=== PATIENT | female | born 2000 | race Caucasian/White ===

== ENCOUNTER 2024-01-28 10:30 | Emergency (ER) | payer OTHER, SELFPAY ==
[2024-01-28 10:36] VITALS: BP 131/65
[2024-01-28 11:21] VITALS: BMI 26.5
--- NOTE | 2024-01-28 11:32 | ED.GENMED ---
History of Present Illness
General
Chief Complaint: Musculo-Skeletal Complaint
Source: patient
Exam Limitations: none
Time Seen by Provider: 01/28/24 11:13
Nursing documentation reviewed up to this point in time: agreed with
History of Present Illness
History of Present Illness:
Patient is a 23-year-old female who presents to the ER complaining of low back pain. Patient was at [facility] and caught another girl who was going to fall. The girl landed on her chest and she arched her back.
Since then she has had pain across her lower back. She denies any radiation in her legs denies any weakness in her legs. She has been taking ibuprofen. She did take ibuprofen this morning.
Review of Systems
Review of Systems
Allergies reviewed?: Yes
All Other Systems: ROS reviewed and negative except as documented in HPI and ROS
Respiratory: Reports no symptoms
Cardiac: Reports no symptoms
ABD/GI: Reports no symptoms
Musculoskeletal: Reports back pain (Low back pain)
Skin: Reports no symptoms
Neurological: Reports no symptoms
Psychiatric: Reports no symptoms
Phy Exam
General Physical Exam
General Presentation: no apparent distress
General Skin: warm and dry
General Habitus: normal
General Mental: alert
General Hydration: appears well hydrated
Neurological Exam
Neurological Exam: alert and oriented x3
Musculoskeletal Exam
Musculoskeletal Exam: other (Normal inspection to low back; tenderness throughout bilateral paraspinal muscles)
Skin Exam
Skin Exam: normal color and warm/dry
Psychiatric Exam
Psychiatric Exam: normal mood/affect
Course
Orders/Labs/Results
Orders:
Orders
01/28/24 11:30
Lumbar Spine Complete, 4 View [CR Lumbar Spine Comp Min 4 Vw*] Urgent
Comment:
Reason For Exam: trauma
01/28/24 11:32
Test Result ONCE
01/28/24 11:34
HCG, Urine Qualitative Screen Urgent
Date Specimen was Collected: 01/28/24
Time Specimen was Collected: 11:32
Urinalysis Reflex To Culture Urgent
Date Specimen was Collected: 01/28/24
Time Specimen was Collected: 11:32
Urine Microscopic Reflex Cult Urgent
Urine Culture Urgent
ZELDA Source: U
Specimen Description:
Date Specimen was Collected: 01/28/24
Time Specimen was Collected: 11:32
01/28/24 13:10
Cefdinir [Omnicef] 300 mg PO NOW STA
Abnormal Lab Results
01/28/24
11:34
Leukocyte Esterase Rfl 1+ A
(Negative)
Urine RBC 3-6 A /HPF
(0-2)
Urine WBC (Reflex) 30-40 A /HPF
(0-5)
Urine Bacteria (Reflex) Few A
(Negative)
Vital Signs
Initial and Last Documented VS:
Initial Vital Signs
Temp Pulse Resp BP Pulse Ox
98.4 F 75 16 131/65 98
01/28/24 10:36 01/28/24 10:36 01/28/24 10:36 01/28/24 10:36 01/28/24 10:36
Last Documented Vital Signs
Temp Pulse Resp BP Pulse Ox
98.4 F 75 16 131/65 98
01/28/24 10:36 01/28/24 10:36 01/28/24 10:36 01/28/24 10:36 01/28/24 10:36
MDM/Problems Addressed
MDM/Problems Addressed:
Patient initially presented for back injury. Symptoms are consistent with lumbar strain no obvious fractures on x-ray no neurological deficits. In addition patient was found to have UTI. Patient did not initially complain about dysuria however
when I asked after UA results with patient does report she has had burning with urination since Monday. No fevers I think the back pain is related to her muscle injury and not pyelonephritis. She denies any nausea vomit no other concerning
symptoms we will treat back strain with ibuprofen I did offer muscle relaxer she declines will d/c on cefdinir for UTI.
*Radiology
Radiology exam reviewed: radiology read reviewed
*Pulse Oximetry
Patient hypoxic: no
*Critical Care Note
Total Time (30-74mins, 75-104mins- exclusive of procedures): Not Applicable
ED Attending Note
-
Portions of this chart may have been created with voice recognition software.� Occasional wrong word or��sound alike� substitutions may have occurred due to the inherent limitations of voice recognition software.
Discharge Plan
Departure
Patient Disposition: Home (Routine Discharge)
Date of Disposition: 01/28/24
Time of Disposition: 13:10
Patient with high blood pressure during this ER visit?: Yes
Condition: Fair
Covid-19: Not Applicable
Discharge Problem:
Lumbar strain, UTI (urinary tract infection)
Instructions: Low Back Pain (DC), Back Muscle Strain (DC), Urinary Tract Infection, Adult ED, BLOOD PRESSURE
Prescriptions:
New
cefdinir 300 mg capsule
300 mg PO BID Qty: 14 0RF
Referrals:
Julia Whitt MD [Family Provider] -
Stand Alone Forms: Back to School
Activity Restrictions/Additional Instructions:
As discussed for lumbar strain you may ice the affected area for the next 24 to 48 hours 20 minutes at a time several times a day followed by warm moist heat after 48 hours. Alternate between ibuprofen and Tylenol. In addition you do have a
urinary tract.you were given first dose of antibiotic here in the ER and a prescription was sent to your pharmacy. Take as directed. Return if any worsening of symptoms increased back pain, nausea vomiting fever chills. Return if any weakness or
numbness/tingling in lower extremities
Interventions
Interventions:
*Risk Screen - Suicide Last Done: 01/28/24 10:36
*Neglect/Abuse Screening Last Done: 01/28/24 10:36
ED- Fall Risk Assessment Last Done: 01/28/24 11:21
ED-Musculoskeletal Assessment Last Done: 01/28/24 11:21
Discharge Date and Time
Print Language: ETHIOPIAN
[2024-01-28 11:54] LABS: Urine Albumin Negative (Neg - Trace); Urine Bilirubin Negative (Negative); Urine Character Clear (Clear); Urine Color Yellow; Urine Glucose Negative (Negative); Urine Ketone Negative (Negative); Urine Leukocyte 1+ (Negative); Urine Nitrite Negative (Negative); Urine Occult Blood Negative (Negative); Urine Specific Gravity 1.005 (<1.030); Urine Urobilinogen Negative (Neg - 1+)
[2024-01-28 12:04] LABS: Urine Squamous Cell >30 /LPF (Few)
[2024-01-28 12:05] LABS: Urine Mucus Few; Urine Urothelial Cell 16-20 /LPF (FEW)
[2024-01-28 12:07] LABS: HCG, Urine Qualitative Screen Negative; Urine Bacteria Few (Negative); Urine White Cell 30-40 /HPF (0-5)
[2024-01-28] MEDS: OMNICEF 300 MG PO (13:18)
== END 2024-01-28 13:20 | disposition home or self-care (01) ==
LOC: EMR 10:30
PROVIDERS: Nurse Practitioner; EMERGENCY PHYSICIAN Emergency Medicine; FAMILY PHYSICIAN Family Medicine
DX: S39.012A Strain of muscle, fascia and tendon of lower back, initial encounter (principal); N39.0 Urinary tract infection, site not specified; W50.0XXA Accidental hit or strike by another person, initial encounter; Y93.45 Activity, cheerleading
CPT/HCPCS: 99284; 72110; 81003; 81015; 81025; 87086